=== PATIENT | male | born 2000 | race Caucasian/White ===

== ENCOUNTER 2023-09-21 19:16 | Emergency (ER) | payer OTHER ==
[2023-09-21] MEDS: Acetaminophen 500 MG Tab PO ONE (20:18)
[2023-09-21] MEDS: Ibuprofen 200 MG Tab PO ONE (20:18)
== END 2023-09-21 20:25 | disposition home or self-care (01) ==
LOC: VM.ED 19:16
DX: S63.502A Unspecified sprain of left wrist, initial encounter (principal); W22.8XXA Striking against or struck by other objects, initial encounter
CPT/HCPCS: 29125; 73110-LT; 99283-25; A9270-GY